=== PATIENT | male | born 1975 | race African-American/Black ===

== ENCOUNTER 2017-04-19 10:03 | Day surgery (SDC) | payer MEDICAID ==
[~2017-04-19 10:03] MED LIST: ALBUTEROL2.5 MG/3 M INH; BACITRACIN28.4 G2 TP; BACTRIM DS TAB1 EAC2 PO; CHLORHEXIDINE473 M1 PO; CLINDAMYCI600 MG/4 M IV; CYCLOBENZAPRINE5 M1 PO; CYMBALTA30 M1 PO; DAILY MULTIPLE1 EAC2 NG; E.E.S. 200200 MG/51 NG; FOLIC ACID1 M1 NG; HUMALOG100 UNIT/1 SC; IBUPROFEN600 M1 PO; IPRAT-ALBUT 0.5-3 ML INH; IPRAT-ALBUT 0.5-3 ML NEB; LORAZEPAM2 MG/1 M2 IV; NEURONTIN600 M1 PO; NO HOME MEDICATION; PHILLIPS'400 MG/51 NG; PROTONIX40 M2 PO; ROXICODONE5 M2 PO; SOLU-CORTE100 MG/24 IV; THIAMINE HCL100 M2 NG; TOPROL XL50 M1 PO; TRAMADOL HCL50 M2 PO; TYLENOL EXTRA500 M1 PO; ULTRAM50 M1 PO; VANCOMYCIN1 GM/VIA2 IV; ZESTRIL5 M1 PO; ZOSYN 3.373.375 GM/2 IV
[2017-04-19 10:59] LABS: BASO % 0.3 % (0-2); EOSINOPHIL ABSOLUTE COUNT 0.4 tho/cmm (0.0-0.7); HCT-HEMATOCRIT 40.7 % (36.0-53.5); HGB-HEMOGLOBIN 13.8 gm/dl (13.5-17.0); IMMATURE GRANULOCYTES ABSOLUTE 0.01 tho/cmm (0-0.03); IMMATURE GRANULOCYTES PERCENT 0.2 % (0-0.3); LYMPH % 32.3 % (20-45); LYMPH ABSOLUTE COUNT 1.9 tho/cmm (0.8-4.5); MCH (MEAN CORPUSCULAR HGB) 27.8 pg (28.0-32.0); MCHC MEAN CORPUSCULAR HGB CONC 33.9 % (32.0-36.0); MCV (MEAN CELL VOLUME) 81.9 fl (82.0-96.0); MEAN PLATELET VOLUME 9.1 cmc (9.4-12.4); MONO % 8.8 % (0-12); MONOCYTE ABSOLUTE COUNT 0.5 tho/cmm (0.0-1.2); NEUTROPHIL ABSOLUTE COUNT 3.1 tho/cmm (1.6-8.0); NEUTROPHIL-AUTOMATED 3.1 tho/cmm (1.6-8.0); NEUTROPHILS % 52.4 % (40-80); PLATELET COUNT 372 tho/cmm (150-450); RED BLOOD COUNT 4.97 mil/cmm (4.40-5.70); RED CELL DISTRIBUTION WIDTH 17.2 % (12.4-16.4); WHITE BLOOD COUNT 5.9 tho/cmm (4.0-10.0)
[2017-04-19 11:16] LABS: ANION GAP 13 mmol/L (0-20); BLOOD UREA NITROGEN 12 mg/dl (6-24); CALCIUM 9.4 mg/dl (8.5-10.5); CARBON DIOXIDE-VENOUS 25 mmol/L (22-32); CHLORIDE 107 mmol/l (96-110); CREATININE 1.14 mg/dl (0.60-1.30); GLUCOSE 93 mg/dL (70-110); POTASSIUM 4.5 mmol/L (3.7-5.1); SODIUM 140 mmol/L (135-145); eGFR VALUE FOR BLACK >90 mL/Min
[2017-05-21] MEDS ORDERED: NAPROSYN500 M1 PO (10:29)
== END 2017-04-19 14:35 ==
LOC: SRG 10:03 → SHSB 10:04 → ORW 12:33 → SHSB 13:25
PROVIDERS: Anesthesiology
PROC: 0Y6R0Z3 Detachment at Right 2nd Toe, Low, Open Approach (ICD-10-PCS; principal; 2017-04-19)
PROC: 0Y6T0Z3 Detachment at Right 3rd Toe, Low, Open Approach (ICD-10-PCS; 2017-04-19)
DX: G62.9 Polyneuropathy, unspecified (principal); L57.0 Actinic keratosis; I25.2 Old myocardial infarction; I10 Essential (primary) hypertension; G40.909 Epilepsy, unspecified, not intractable, without status epilepticus; M19.90 Unspecified osteoarthritis, unspecified site; F32.9 Major depressive disorder, single episode, unspecified; J45.909 Unspecified asthma, uncomplicated; I27.2 Other secondary pulmonary hypertension; K21.9 Gastro-esophageal reflux disease without esophagitis; Z79.899 Other long term (current) drug therapy; Z87.891 Personal history of nicotine dependence; Z87.01 Personal history of pneumonia (recurrent); Z98.890 Other specified postprocedural states
CPT/HCPCS: J0171; J0690; J2250; J3010

== ENCOUNTER 2017-04-25 00:48 | Emergency (ER) | payer MEDICAID ==
[2017-05-21] MEDS ORDERED: NAPROSYN500 M1 PO (10:29)
== END 2017-04-25 00:50 | disposition left against medical advice (07) ==
LOC: EDMED 00:48
DX: Z53.21 Procedure and treatment not carried out due to patient leaving prior to being seen by health care provider (principal)

== ENCOUNTER 2017-04-25 16:04 | Emergency (ER) | payer MEDICAID ==
[2017-04-25 18:33] LABS: BASO % 0.1 % (0-2); EOS % 0.7 % (0-7); EOSINOPHIL ABSOLUTE COUNT 0.1 tho/cmm (0.0-0.7); HGB-HEMOGLOBIN 14.9 gm/dl (13.5-17.0); IMMATURE GRANULOCYTES ABSOLUTE 0.01 tho/cmm (0-0.03); IMMATURE GRANULOCYTES PERCENT 0.1 % (0-0.3); LYMPH % 20.2 % (20-45); LYMPH ABSOLUTE COUNT 1.5 tho/cmm (0.8-4.5); MCH (MEAN CORPUSCULAR HGB) 27.8 pg (28.0-32.0); MCHC MEAN CORPUSCULAR HGB CONC 33.9 % (32.0-36.0); MCV (MEAN CELL VOLUME) 82.1 fl (82.0-96.0); MEAN PLATELET VOLUME 9.6 cmc (9.4-12.4); MONO % 10.9 % (0-12); MONOCYTE ABSOLUTE COUNT 0.8 tho/cmm (0.0-1.2); NEUTROPHIL ABSOLUTE COUNT 5.1 tho/cmm (1.6-8.0); NEUTROPHIL-AUTOMATED 5.1 tho/cmm (1.6-8.0); PLATELET COUNT 339 tho/cmm (150-450); RED BLOOD COUNT 5.36 mil/cmm (4.40-5.70); RED CELL DISTRIBUTION WIDTH 17.2 % (12.4-16.4); WHITE BLOOD COUNT 7.5 tho/cmm (4.0-10.0)
[2017-04-25 19:03] LABS: ALB/GLOB RATIO 0.7 (0.8-2.0); ALBUMIN 3.5 g/dl (3.5-5.0); ALKALINE PHOSPHATASE 131 U/L (33-138); ALT/SGPT 24 U/L (12-78); ANION GAP 11 mmol/L (0-20); AST/SGOT 18 U/L (10-40); BILIRUBIN,TOTAL 0.4 mg/dl (0.0-1.5); BLOOD UREA NITROGEN 11 mg/dl (6-24); CALCIUM 9.8 mg/dl (8.5-10.5); CARBON DIOXIDE-VENOUS 26 mmol/L (22-32); CHLORIDE 104 mmol/l (96-110); CREATININE 1.19 mg/dl (0.60-1.30); GLUCOSE 87 mg/dL (70-110); LIPASE 185 U/L (73-393); POTASSIUM 3.9 mmol/L (3.7-5.1); SODIUM 137 mmol/L (135-145); eGFR VALUE FOR BLACK 87 mL/Min
[2017-05-21] MEDS ORDERED: NAPROSYN500 M1 PO (10:29)
== END 2017-04-25 21:50 ==
LOC: EDMED 16:04
PROVIDERS: Nurse Practitioner Family
DX: R10.84 Generalized abdominal pain (principal); R11.2 Nausea with vomiting, unspecified; I25.2 Old myocardial infarction; Z79.899 Other long term (current) drug therapy
CPT/HCPCS: J2270; J2405; J7030; Q9967